=== PATIENT | female | born 1965 | race Caucasian/White ===

== ENCOUNTER 2020-12-25 07:22 | Observation (INO) | payer OTHER ==
[~2020-12-25] VITALS: Ht 58.4 cm; Wt 61.7 kg
[2020-12-25 07:58] LABS: HEMATOCRIT 36.2 % (37.0-47.0); HEMOGLOBIN 11.9 gm/dL (12.0-15.0)
[2020-12-25 08:14] VITALS: BP 99/74
[2020-12-25 15:32] VITALS: BP 105/73
--- NOTE | 2020-12-25 16:04 | NUR ---
PT ARRIVED TO UNIT, A&OX4, MILD PAIN. NAUSEATED. LAP SITES COVERED WITH BAND AIDS X5. NO DRAINAGED NOTED. PT UP TO BSC WITH ASSIST. IV ZOFRAN ADMINISTERED. FLUIDS RUNNING. PT HAS NO OTHER COMPLAINTS AT THIS TIME.
[2020-12-25 20:22] VITALS: BP 129/80
[2020-12-26 00:08] VITALS: BP 137/80
--- NOTE | 2020-12-26 05:15 | NUR ---
RECEIVED CARE OF THIS PATIENT AT 1900. PATIENT ALERT AND ORIENTED X4. HAS FIVE SMALL INCISIONS ON ABD COVERED WITH BANDAIDS. UP TO BATHROOM WITH SBA ONLY. C/O PAIN, MED GIVEN. SLEPT OFF AND ON DURING NIGHT.
[2020-12-26 06:24] LABS: HEMOGLOBIN 11.5 gm/dL (12.0-15.0); MCH 28.5 pg (26.0-34.0); MCHC 32.9 g/dL (28.0-37.0); MCV 86.6 fL (80.0-100.0); RBC 4.04 mil/uL (4.20-5.00); RDW 14.3 % (10.5-14.5); WBC 10.8 thou/uL (4.0-11.0)
[2020-12-26 06:37] LABS: CALCIUM 8.4 mg/dL (8.5-10.1); CREATININE 0.9 mg/dL (0.6-1.0); POTASSIUM 4.2 mmol/L (3.5-5.1)
[2020-12-26 07:55] VITALS: BP 115/75
[2020-12-26] MEDS ORDERED: HYDROCODON-ACE1 EAC7 PO (10:04)
--- NOTE | 2020-12-26 10:04 | O ---
[facility] [place] [address] OPERATIVE REPORT Name: AMY MEDINA Room #: 434-P [facility] M..#: [id number] Admission: 12/25/20 Attend Phys: Elder Perez MD Discharge: Date of : 69 Report #: [id number] THIS REPORT FOR: cc: Bell Montague MD, Reem MD Chu,Elder Lai MD ~ DATE OF SERVICE: 12/25/2020 PREOPERATIVE DIAGNOSES: Recent acute cholecystitis with cholelithiasis, treated with gallbladder drain, recurrent pain on Monday. POSTOPERATIVE DIAGNOSES: 1. Recent acute cholecystitis with cholelithiasis. 2. Umbilical hernia. 3. Bleeding venous sinusoid in the liver bed. PROCEDURES PERFORMED: 1. Laparoscopic cholecystectomy with cholangiogram. 2. Repair of umbilical hernia. 3. Suture ligation of venous sinusoid in the liver bed. ANESTHESIA: General. SURGEON: Elder Perez MD COMPLICATIONS: None. ESTIMATED BLOOD LOSS: 300 mL. DESCRIPTION OF PROCEDURE: With the patient under general anesthesia, IV antibiotic was administered. The drain site was undressed and then prepped with Betadine. The patient received IV antibiotic. Timeout was performed. Marcaine 0.25% was used to anesthetize the skin. A small curvilinear incision was made about 2 cm underneath the umbilicus. After dissecting through the skin and subcutaneous tissue, umbilical hernia was identified. The umbilical hernia was cleaned off. There was a small amount of fat that protruded through this was freed from the subQ under the skin and removed. A 0 Vicryl suture placed on the fascial edges after it was identified. One was placed superior and the other one was placed inferior. Veress needle was then placed through peritoneum. Abdominal cavity was insufflated with CO2 without difficulty. An 11 mm trocar was placed into the pneumoperitoneum under visualization. No harm to underlying tissue. Laparoscopic evaluation revealed a normal abdominal content. The gallbladder drain was identified going into the gallbladder. Two 5 mm trocars were placed in right upper quadrant and a 5 mm trocar was placed in the epigastrium. The drain was divided externally and then the drain was able to be pulled out of the gallbladder. A grasper was placed on the gallbladder. There [address] [address] OPERATIVE REPORT Name: AMY MEDINA PERICO Room #: 434-P [facility] M.R.#: [id number] Admission: 12/25/20 Attend Phys: Elder Perez MD Discharge: Date of : 69 Report #: [id number] was a very large stone towards the fundus of the gallbladder. A grasper was placed just proximal to the large stone. The second grasper was placed closer to the gallbladder neck. There is adhesion over this area. The adhesion was dissected free without difficulty. The stomach/duodenum was adherent to the gallbladder via his adhesion and it was away without difficulty. The peritoneum over the gallbladder was then dissected free medially and laterally. There was fair amount of fibrosis at the cystic duct and the cystic artery area. The cystic duct is moderately dilated. The common duct was not able to be visualized very well. It is thought to be more medial and posterior. Using laparoscopic peanut, the cystic duct was able to be dissected free. A clip was placed in the junction of the gallbladder to the cystic duct. Distally, opening was made in the cystic duct. Just proximal to this, cholangiogram catheter was placed, held with a clip. Fluoroscopic cholangiogram was obtained. There was a proximal cystic duct was seen along with the common bile duct and did not see any obvious filling defect. Dye flowed easily into the duodenum. The cholangiogram catheter was then removed. The proximal cystic duct was clipped x1 and then divided and then an Endoloop was placed across the cystic duct because of the thickening and the prominence of the cystic duct, the Endoloop was used. The cystic artery was isolated, divided x2 proximally, one distally and then divided. There was a small posterior artery. This was clipped x2. The distal end was cauterized. Gallbladder was freed from the liver without difficulty. About an inch and a half from the attachment to the gallbladder bed, a longitudinal linear wall structure was found. Thought this was a cyst, but then realized this is a prominent liver sinusoid. When the liver was let down, venous bleeding was found. Even proximally, I see some little bit of venous pulsation going on. The sinusoid had to be suture ligated with 4-0 PDS with laparoscopic suturing technique and knot pusher. Four separate sutures was used to close this. The sinusoid measured about 1 cm long x 6-7 mm width. After the suture ligation, I did not see any further bleeding from this even let the liver bed dropped downward. The gallbladder with large stone was finally totally free from the liver, placed in a specimen bag. This was then retrieved through the infraumbilical port. The umbilical fascia defect was lengthened slightly to allow this large stone to come out. The skin also had to be enlarged to get this large stone out. It is an oval size stone that measured 3 cm x 5 cm. The liver bed was checked, hemostasis obtained. Surgicel fibrillar was placed on the liver bed. Trocars were removed. CO2 was evacuated. Irrigation was also aspirated out. The umbilical fascia defect was closed with 0 PDS [id number] x4 separate sutures. The deep fascia defect came together well. Skin was irrigated. Skin was then closed with 5-0 PDS. The 5 mm epigastric trocar did have to be changed to the 11 mm trocar for the suturing [facility] [address] [place] [address] OPERATIVE REPORT Name: AMY MEDINA PERICO Room #: 434-P [facility] Tamara Castro.#: [id number] Admission: 12/25/20 Attend Phys: Elder Perez MD Discharge: Date of : 69 Report #: [id number] and introducing the needle in and out of the peritoneal cavity. Steri-Strip, Band-Aids applied. The patient tolerated the procedure well. <ELECTRONICALLY SIGNED> By: Elder Perez MD 12/26/20 1004 [id number] 1434 Elder Perez MD /nt
[2020-12-26 10:23] VITALS: BP 115/75
--- NOTE | 2020-12-26 10:51 | NUR ---
Assumed pt care at 7am. Pt up to bathroom with sba. Assessment completed.vss. Pt c/o abdominal pain rated 5/10. Rowan given with am meds and well tolerated. Dr Perez here, dc order noted.Dc summaery compile and reviewed with pt. Ilsa pastrana dc'd.At 1050,pt dc home in [place] with accompanied by toxicology supervisor.
--- NOTE | 2020-12-30 11:08 | PATH ---
[facility] [address] [address] PATHOLOGY RPT PROCEDURE Name: AMY MEDINA PERICO Room #: 434-P [facility] M.R.#: [id number] Admission: 12/25/20 Date of : 69 Discharge: 12/26/20 Report #: [id number] Path Case #: [id number] [facility] Accession Number: [id number] . 01 Material submitted: . gallbladder - GALLBLADDER . 01 Clinician provided ICD-10: 00 . 01 Clinical history: . LAPAROSCOPIC CHOLECYSTECTOMY WITH G ACUTE CHOLECYSTITIS WITH CHOLELITHIASIS . 02 Diagnosis: Gallbladder, cholecystectomy: - Moderate chronic cholecystitis. - Cholelithiasis. (IUV:calender tender; 12/28/2020) MBR 12/28/2020 1605 Local . 02 Electronically signed: . Sally Rosa MD, Pathologist NPI- [id number] . 01 Gross description: . Fixative: Formalin Labeled: Gallbladder Specimen received: A previously incised gallbladder Dimensions: 9.5 x 3.5 x 1.5 cm Serosa: Cole, hemorrhagic and smooth Lymph node: Not identified Mucosa: Brown, hemorrhagic, markedly effaced cole irregular Average wall thickness: 0.4 cm Calculi: A yellow-brown, ovoid, bosselated, firm calculus is identified within the specimen container measuring 4.3 x 2.7 x 2.1 cm Abnormalities: None identified A1- [employer] body, fundus, and the cystic duct margin. (MRF; 12/25/2020) MFE/MFE 12/25/2020 2127 Local . 02 Pathologist provided ICD-10: K80.10 . 02 CPT . 421696 Specimen Comment: A courtesy copy of this report has been sent to [phone] [phone] PATHOLOGY RPT PROCEDURE Name: AMY MEDINA PERICO Room #: 434-P [facility] Tamara Stahl#: [id number] Admission: 12/25/20 Date of : 69 Discharge: 12/26/20 Report #: [id number] Path Case #: [id number] Specimen Comment: [id number] Specimen Comment: Report sent to / DR MERCER Specimen Comment: A duplicate report has been generated due to demographic updates. Performed at: 01 [facility] [address], [place] [id number] MD Ben Carson MD Phone: [phone] Performed at: [address] [id number] MD Sally Rosa MD Phone: [phone]
== END 2020-12-26 10:51 | disposition home or self-care (01) ==
LOC: OR 07:22 → 4S 15:27 → OR 01-06 08:42
PROVIDERS: Student in an Organized Health Care Education/Training Program; ADMIT Surgery; ATTEND Surgery
DX: K80.00 Calculus of gallbladder with acute cholecystitis without obstruction (principal); Z20.822 Contact with and (suspected) exposure to COVID-19; K42.9 Umbilical hernia without obstruction or gangrene
CPT/HCPCS: 50010; 50101; 50411; 50555; 50886; 51297; 51687; 52265; 53307; 53310; 55245; 55317; 56462; 56525; 56526; 58574; 58910; 62110; 62900; 70005